=== PATIENT | female | born 1990 | race Caucasian/White ===

== ENCOUNTER 2017-12-04 10:54 | Inpatient (IN) | payer OTHER ==
[2017-12-04] MEDS ORDERED: CARBOPROST TROMETHAMINE 250 MCG/ML 1 ML AMP IM PRN (11:54)
[2017-12-04] MEDS ORDERED: AMPICILLIN 2,000 MG in SODIUM CHLORIDE 0.9% 100 ML IVPB STA (11:54)
[2017-12-04] MEDS ORDERED: TERBUTALINE 1 MG/ML VIAL SQ PRN (11:54)
[2017-12-04] MEDS ORDERED: LIDOCAINE 1% (PF) 10 MG/ML (30 ML SDV) SQ PRN (11:54)
[2017-12-04] MEDS ORDERED: METHYLERGONOVINE 0.2 MG/ML 1 ML AMP IM PRN (11:54)
[2017-12-04] MEDS ORDERED: OXYTOCIN 10 UNIT/ML 1 ML VIAL IM PRN (11:54)
[2017-12-04] MEDS ORDERED: LACTATED RINGERS 1,000 ML IV SCH (12:00)
[2017-12-04] MEDS ORDERED: IBUPROFEN 600 MG TAB PO PRN (12:33)
[2017-12-04] MEDS ORDERED: LANOLIN CREAM 5 GM TUBE TOPICAL PRN (12:33)
[2017-12-04] MEDS ORDERED: MEASLES-MUMPS-RUBELLA VACC/PF 12,500 UNIT/0.5 ML VIAL SQ ONE (12:33)
[2017-12-04] MEDS ORDERED: ACETAMINOPHEN TAB 325 MG TAB PO PRN (12:33)
[2017-12-04] MEDS ORDERED: ZOLPIDEM 5 MG TAB PO PRN (12:33)
[2017-12-04] MEDS ORDERED: WITCH HAZEL 1 EACH MED..PAD TOPICAL PRN (12:33)
[2017-12-04] MEDS ORDERED: diphenhydrAMINE 50 MG CAP PO PRN (12:33)
[2017-12-04] MEDS ORDERED: SIMETHICONE 80 MG CHEWABLE PO PRN (12:33)
[2017-12-04] MEDS ORDERED: HYDROCORTISONE 2.5% RECTAL CREAM 30 GM TUBE RECTAL PRN (12:33)
[2017-12-04] MEDS ORDERED: diphenhydrAMINE 50 MG/ML 1 ML VIAL IVP PRN ×2 (12:33)
[2017-12-04] MEDS ORDERED: BENZOCAINE/MENTHOL SPRAY 1 GM/SPRAY AEROSOL TOPICAL PRN (12:33)
[2017-12-04] MEDS ORDERED: diphenhydrAMINE 25 MG CAP PO PRN (12:33)
[2017-12-04 12:34] LABS: Amphetamine Screen,Urine Not Detected (NotDetected); Barbiturate Screen,Urine Not Detected (NotDetected); Benzodiazepines Screen,Urine Not Detected (NotDetected); Cocaine Screen,Urine Not Detected (NotDetected); Methadone Screen, Urine Not Detected (NotDetected); Opiate Screen,Urine Not Detected (NotDetected); Oxycodone Screen, Urine Not Detected (NotDetected); Phencyclidine Screen,Urine Not Detected (NotDetected); Tricyclic Antidepressant,Urine Not Detected (NotDetected); Urn Cannabinoid Scrn Not Detected (NotDetected)
--- NOTE | 2017-12-04 12:36 | P.HPOB ---
History of Present Illness H&P Date: 12/04/17 Chief Complaint: Intrauterine at term: No [facility]: Active labor Becca is a 27-year-old at supposedly 39 weeks based on ultrasound [facility]. She has had no care at all during this nor did she have [facility] with her last she voices no complaints or problems with the and denies ever having any problems like gestational diabetes or hypertension. However we have no records and she has again had no care with the . On presentation she is dilated to 8 cm -2 station with bulging bag of membranes. We'll plan to admit her for labor and try and get at least 1 dose of and about exam prior to her delivering her baby for unknown group B strep status. Her past medical history is essentially unremarkable. Past surgical history cholecystectomy. ALLERGIES none. Social history she denies. Family history is unremarkable. On physical exam this is an overweight female whose HEENT is unremarkable. Heart regular, lungs clear, extremities are without pain. Osteopathic exams unremarkable. heart tones in the 140s and reactive. Assessment intrauterine at we believe term. Plan expect spontaneous vaginal delivery. Past Medical History Past Medical History: No Reported History Additional Past Medical History / Comment(s): Chlamydial infection History of Any Multi-Drug Resistant Organisms: None Reported Past Surgical History: Cholecystectomy Past Anesthesia/Blood Transfusion Reactions: No Reported Reaction Past Psychological History: No Psychological Hx Reported, Depression Smoking Status: Never smoker Past Alcohol Use History: None Reported Past Drug Use History: None Reported - Past Family History Mother Family Medical History: No Reported History Medications and Allergies Home Medications Medication Instructions Recorded Confirmed Type No Known Home Medications [No 12/04/17 12/04/17 History Known Home Medications] Allergies Allergy/AdvReac Type Severity Reaction Status Date / Time No Known Allergies Allergy Verified 12/04/17 11:51 Exam Osteopathic Statement: *. No significant issues noted on an osteopathic structural exam other than those noted in the History and Physical/Consult. - Vital Signs Vital signs: Intake and Output 12/03/17 12/04/17 12/04/17 22:59 06:59 14:59 Other: Weight 113.398 kg Patient Weight 12/05/17 06:59 Weight 113.398 kg
--- NOTE | 2017-12-04 12:37 | P.PROBDLV ---
Vaginal Delivery Note - . Vaginal Delivery Note: Patient progressed to complete and pushing with spontaneous vaginal delivery of a viable male over an insect midline laceration. Falling deliver the head anterior posterior shoulders were delivered gentle downward upper traction followed by the remainder the baby. Mouth nares were then bulb suctioned and baby was placed on mother's abdomen where the umbilical cord was clamped and cut in usual fashion. Nursery personnel was present to assume care. Placenta was then delivered intact Pitocin was added to the IV. Second-degree laceration was then repaired with 3-0 Vicryl in usual fashion following 1% Xylocaine for analgesia. I did do a rectal exam with no rectal involvement noted. scores were 9 and 9 at one and 5 minutes respectively and the weight was 8 lbs. 15 oz. Both mother and baby currently are stable following delivery. It is noted that she plans to give up the baby for adoption.
[2017-12-04 12:43] LABS: Glucose,Urine (UA) Negative (Negative); Ketones,Urine Negative (Negative); Protein,Urine Trace (Negative)
[2017-12-04 13:55] LABS: Basophils % (A) 0 %; Eosinophils # (A) 0.1 k/uL (0-0.7); Eosinophils % (A) 1 %; HCT 33.1 % (34.0-46.0); HGB 10.3 gm/dL (11.4-16.0); Hypochromasia Moderate; Lymphocytes # (A) 1.8 k/uL (1.0-4.8); Lymphocytes % (A) 19 %; MCH 25.3 pg (25.0-35.0); MCV 81.6 fL (80.0-100.0); Mean Platelet Volume 10.2; Monocytes # (A) 0.5 k/uL (0-1.0); Monocytes % (A) 5 %; Neutrophils # (A) 6.8 k/uL (1.3-7.7); Neutrophils % (A) 74 %; Platelet Count 364 k/uL (150-450); RBC 4.06 m/uL (3.80-5.40); RDW 14.5 % (11.5-15.5); WBC 9.2 k/uL (3.8-10.6)
[2017-12-04] MEDS ORDERED: AMPICILLIN 1,000 MG in SODIUM CHLORIDE 0.9% 50 ML IVPB SCH (16:00)
[2017-12-04 17:25] LABS: HIV AB P24 Non-Reactive (Non-Reactive); HIV P24 AG Non-Reactive (Non-Reactive)
[2017-12-04 19:12] VITALS: BMI 36.9
[2017-12-04 21:30] VITALS: RESP 16
[2017-12-05] MEDS: SENNOSIDES-DOCUSATE SODIUM 1 EACH TAB PO SCH ×2 (08:02→09:48)
--- NOTE | 2017-12-05 08:38 | P.DS ---
Providers Date of admission: 12/04/17 11:22 Expected date of discharge: 12/05/17 Attending physician: Flaco Shahid Primary care physician: Stated None Hospital Course: Becca is doing very well day 1. She will be discharged home today. Vital signs stable and afebrile. Heart regular, lungs clear, extremities are without pain. Abdomen soft uterus is firm lochia is reported be light. Assessment day 1. Plan discharged home follow up with me in 6 weeks. Discharge instructions were thoroughly reviewed but she does not want anything for pain. Patient Condition at Discharge: Good Plan - Discharge Summary New Discharge Prescriptions: New Ibuprofen [Motrin] 600 mg PO Q6HR PRN #30 tab PRN Reason: Pain Discharge Medication List Ibuprofen [Motrin] 600 mg PO Q6HR PRN #30 tab 12/04/17 [Rx] Follow up Appointment(s)/Referral(s): Flaco Shahid DO [Doctor of Osteopathic Medicine] - 6 Weeks Activity/Diet/Wound Care/Special Instructions: No heavy lifting, limit stairs and driving and pelvic rest. If any high temperatures, heavy bleeding, or severe pain report to emergency room or call our office. Discharge Disposition: HOME SELF-CARE
[2017-12-05 09:40] VITALS: BP 126/72; PULSE 71; TEMP 98
== END 2017-12-05 13:12 | disposition home or self-care (01) | DRG 775 ==
LOC: FBPOP 10:54 → 4FBP 11:22
PROVIDERS: ADMIT Obstetrics & Gynecology; ATTEND Obstetrics & Gynecology
PROC: 10E0XZZ Delivery of Products of Conception, External Approach (ICD-10-PCS; principal; 2017-12-04)
PROC: 0KQM0ZZ Repair Perineum Muscle, Open Approach (ICD-10-PCS; 2017-12-04)
DX: O70.1 Second degree perineal laceration during delivery (principal); Z37.0 Single live birth; Z3A.39 39 weeks gestation of pregnancy
CPT/HCPCS: 59025; 80306; 81003; 82947; 84112; 85025; 86762; 86780; 86850; 86900; 86901; 87340; 87390; 88307; 99213

== ENCOUNTER 2021-07-19 15:30 | Emergency (ER) | payer OTHER ==
[2021-07-19 15:41] VITALS: BP 125/70; PULSE 84; RESP 16; TEMP 98.7
[2021-07-19] MEDS ORDERED: BACITRACIN OINT 1 EACH PACKET TOPICAL ONE (16:08)
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
== END 2021-07-19 16:39 | disposition home or self-care (01) ==
LOC: EC 15:30
DX: T23.101A Burn of first degree of right hand, unspecified site, initial encounter (principal); T31.0 Burns involving less than 10% of body surface; X08.8XXA Exposure to other specified smoke, fire and flames, initial encounter
CPT/HCPCS: 16000; 99283

== ENCOUNTER → 2024-09-03 | Outpatient (CLI) | payer OTHER ==
--- NOTE | 2024-09-03 16:49 | US ---
EXAMINATION TYPE: US liver DATE OF EXAM: 09/03/2024 COMPARISON: US 2009 CLINICAL INDICATION: Female, 34 years old with history of R74.8 ELEVATED LIVER ENZYMES; TECHNIQUE: Grayscale and color Doppler imaging of the right upper quadrant was performed. FINDINGS: EXAM MEASUREMENTS: Liver Length: 19.6 cm CBD: 0.6 cm Right Kidney: 11.3 x 4.8 x 5.1 cm Pancreas: visualized portions wnl, limited by overlying midline bowel gas Liver: enlarged, attenuating, increased echogenicity Gallbladder: surgically absent CBD: visualized portions wnl, limited by overlying bowel gas Right Kidney: wnl Visualized portions of the pancreas are within normal limits. Liver is enlarged with diffusely increa sed echogenicity. This appearance limits evaluation for small hepatic masses. No gross evidence of ma ss. Gallbladder is surgically absent. Common bile duct is within normal limits. Right kidney demonstr ates no shadowing calculi, solid mass, or hydronephrosis. IMPRESSION: 1. Hepatomegaly with diffuse fatty infiltration. 2. Post cholecystectomy changes. [facility], , 09/03/2024 4:47 PM
== END | disposition home or self-care (01) ==
LOC: RADUSWWP 07:08
PROVIDERS: ATTEND Internal Medicine
DX: R74.8 Abnormal levels of other serum enzymes (principal); Z90.49 Acquired absence of other specified parts of digestive tract
CPT/HCPCS: 76705